=== PATIENT | female | born 1950 | race Caucasian/White ===

== ENCOUNTER 2019-06-23 09:43 | Outpatient (CLI) | payer OTHER, SELFPAY ==
--- NOTE | ~2019-06-23 | DEXA_ITS ---
Bone Density Report Name: Cinthya Michael Age: 69 Sex: Female Ethnicity: White Date of : 1950 Indication: osteopenia; height loss; Referring Provider: IMTIAZ MAYNARD Study: Bone densitometry was performed. Exam Date: June 23, 2019 Accession number: [id number] Bone Density: Region BMD T-score Z-score Classification AP Spine (L1, L2, L3) 0.853 -1.5 0.4 Osteopenia Femoral Neck (Left) 0.732 -1.0 0.6 Normal Total Hip (Left) 0.874 -0.6 0.8 Normal Total Hip Bilateral Avg 0.868 -0.7 0.8 Normal Femoral Neck (Right) 0.736 -1.0 0.6 Normal Total Hip (Right) 0.861 -0.7 0.7 Normal World Health Organization criteria for BMD impression classify patients as: Normal (T-score at or above -1.0), Osteopenia (T-score between -1.0 and -2.5), or Osteoporosis (T-score at or below -2.5). 10-year Fracture Risk(1): Major Osteoporotic Fracture 8.1% Hip Fracture 0.6% Reported Risk Factors: [place] (), Neck BMD=0.736, BMI=31.6 (1) FRAX(R) Version 3.08. Fracture probability calculated for an untreated patient. Fracture probability may be lower if the patient has received treatment. Previous Exams: Region Exam Age BMD T-score BMD Change BMD Change Date g/cm2 vs Baseline vs Previous AP Spine(L1, L2, L3) 06/23/2019 69 0.853 -1.5 -0.316(-27.0%) -0.023(-2.7%)* 06/22/2017 67 0.877 -1.3 -0.292(-25.0%) -0.161(-15.5%) 03/04/2009 58 1.037 0.2 -0.131(-11.2%) -0.131(-11.2%) 10/31/2004 54 1.169 1.4 Total Hip(Left) 06/23/2019 69 0.874 -0.6 -0.085(-8.9%)# 0.037(4.5%)* 06/22/2017 67 0.837 -0.9 -0.123(-12.8%) -0.049(-5.5%)# 03/04/2009 58 0.885 -0.5 -0.074(-7.7%)* -0.074(-7.7%)* 10/31/2004 54 0.959 0.1 Total Hip(Right) 06/23/2019 69 0.861 -0.7 -0.100(-10.4%) -0.025(-2.8%) 06/22/2017 67 0.886 -0.5 -0.075(-7.8%)# -0.003(-0.4%)# 03/04/2009 58 0.889 -0.4 -0.072(-7.5%)* -0.072(-7.5%)* 10/31/2004 54 0.961 0.2 *Denotes significance at 95% confidence level, LSC for AP Spine = 0.022 g/cm2, LSC for Total Hip = 0.027 g/cm2 Clinical Information Provided by Patient: Has used the following medications: Calcium Patient maximum height was 63 Menopause Age: 57 No regular weight bearing exercise Does not regularly consume dairy products Onset of menses at age 16 Number of children 2 Impression: The patient has low bone mass, based on the Total Spine T-score. The patient has an estimated ten-
== END 2019-06-23 09:44 | disposition home or self-care (01) ==
PROVIDERS: PCP Family Medicine; Visit Provider Family Medicine
DX: K21.9 Gastro-esophageal reflux disease without esophagitis (principal); Z78.0 Asymptomatic menopausal state; M85.88 Other specified disorders of bone density and structure, other site
CPT/HCPCS: 77080

== ENCOUNTER 2020-07-08 16:38 | Outpatient (CLI) | payer OTHER, SELFPAY | END 2020-07-08 16:39 | disposition home or self-care (01) | LOC: ANHCOVIDVC 16:38 | PROVIDERS: PCP Family Medicine | DX: Z23 Encounter for immunization (principal) | CPT/HCPCS: 0001A; 91300 ==

== ENCOUNTER 2020-07-29 16:43 | Outpatient (CLI) | payer OTHER, SELFPAY | END 2020-07-29 16:44 | disposition home or self-care (01) | LOC: ANHCOVIDVC 16:43 | PROVIDERS: PCP Family Medicine | DX: Z23 Encounter for immunization (principal) | CPT/HCPCS: 0002A; 91300 ==

== ENCOUNTER 2020-10-27 17:03 | Outpatient (CLI) | payer OTHER, SELFPAY ==
--- NOTE | ~2020-10-27 | MM_ITS ---
EXAMINATION: MM screening [facility] BI w farooq HISTORY: Screening mammogram TECHNIQUE: Craniocaudal and mediolateral oblique 3-D tomosynthesis images were obtained and synthetic 2-D images were generated. CAD analysis was submitted and interpreted. COMPARISON: 05/28/2019, 06/22/2017, 05/01/2016 bilateral digital screening mammogram examinations BREAST PARENCHYMAL COMPOSITION: The breasts are almost entirely fatty. FINDINGS: There is no evidence of suspicious mass, calcification, or architectural distortion to sugg est malignancy in either breast. There has been no suspicious interval change. IMPRESSION: 1. No mammographic evidence of malignancy. 2. Recommend routine screening mammography in one year. BI-RADS Category 1: Negative Reviewed, dictated and finalized at location A.
== END 2020-10-27 17:04 | disposition home or self-care (01) ==
LOC: ANHIMG 17:05
PROVIDERS: PCP Family Medicine; Visit Provider Family Medicine
DX: Z12.31 Encounter for screening mammogram for malignant neoplasm of breast (principal)
CPT/HCPCS: 77063; 77067

== ENCOUNTER → 2021-12-29 11:14 | Outpatient (CLI) | payer OTHER, SELFPAY ==
--- NOTE | ~2021-12-29 | MM_ITS ---
EXAMINATION: MM screening [facility] BI w farooq HISTORY: Screening TECHNIQUE: Craniocaudal and mediolateral oblique 3-D tomosynthesis images were obtained and synthetic 2-D images were generated. CAD analysis was submitted and interpreted. COMPARISON: Comparison to multiple prior studies sequentially, with oldest reviewed study dated 04/05. BREAST PARENCHYMAL COMPOSITION: There are scattered areas of fibroglandular density. FINDINGS: There is no evidence of suspicious mass, calcification, or architectural distortion to sugg est malignancy in either breast. There has been no suspicious interval change. IMPRESSION: 1. No mammographic evidence of malignancy. 2. Recommend routine screening mammography in one year. BI-RADS Category 1: Negative Reviewed, dictated and finalized at location A.
== END ==
PROVIDERS: PCP Family Medicine; Visit Provider Family Medicine
DX: Z12.31 Encounter for screening mammogram for malignant neoplasm of breast (principal)
CPT/HCPCS: 77063; 77067

== ENCOUNTER → 2022-01-13 08:50 | Outpatient (CLI) | payer OTHER, SELFPAY ==
--- NOTE | ~2022-01-13 | US_ITS ---
EXAMINATION: US aorta DATE: 01/13/2022 09:20 INDICATION: Hypercholesterolemia. Family history of abdominal aortic aneurysm. TECHNIQUE: Grayscale, color Doppler, and pulsed Doppler images of the aorta and common iliac arteries were obtained. COMPARISON: None. FINDINGS: The aorta measures 2.4 cm in maximum transverse diameter. No aneurysm. The right common iliac artery was not visualized due to bowel gas. The left common iliac artery was not visualized due to bowel gas . IMPRESSION: 1. No abdominal aortic aneurysm. 2. Iliac vessels were obscured. Reviewed, dictated and finalized at location K.
== END ==
PROVIDERS: PCP Family Medicine; Visit Provider Family Medicine
DX: R09.89 Other specified symptoms and signs involving the circulatory and respiratory systems (principal)
CPT/HCPCS: 76775

== ENCOUNTER 2022-04-06 15:21 | Outpatient (CLI) | payer OTHER, SELFPAY ==
--- NOTE | 2022-04-11 12:50 | WPDHOLTEREM ---
Holter/Event Monitor Holter/Event Monitor Date of procedure: 04/06/22 Holter/Event Procedure: 48 Hr Holter Monitor Indications: Flutter Conclusion: 1. 48 hour holter monitor on 04/06/22. 2. Underlying rhythm is sinus rhythm. HR range 37-129 bpm; average HR 82 bpm. 3. No premature supraventricular complexes. No supraventricular tachycardia. 4. There is 1 premature ventricular complex. No ventricular tachycardia. 5. There is a second degree AV block, type I at 37 bpm at 11:51. No significant pauses greater than 2 seconds. 6. Patient reports symptoms of chest pain and shortness of breath which demonstrate sinus rhythm, HR range 69-80 bpm.
== END 2022-04-06 15:22 | disposition home or self-care (01) ==
LOC: ANHCARD 15:22
PROVIDERS: PCP Family Medicine; Visit Provider Family Medicine
DX: I49.8 Other specified cardiac arrhythmias (principal); I44.1 Atrioventricular block, second degree; R06.02 Shortness of breath; R07.9 Chest pain, unspecified
CPT/HCPCS: 93225; 93226

== ENCOUNTER 2022-04-12 16:31 | Outpatient (CLI) | payer OTHER, SELFPAY ==
--- NOTE | ~2022-04-12 | US_ITS ---
US abdomen limited INDICATION: Right upper quadrant pain PROCEDURE: Realtime right upper abdominal ultrasound. COMPARISON: No prior studies for comparison. FINDINGS: The pancreas is normal without focal mass or pancreatic ductal dilation. There is a hypere choic 1.1 cm mass of the liver in a subcapsular location. There is normal directional flow in the po rtal vein. The gallbladder is normal without stones, gallbladder wall thickening or pericholecystic fluid. Comm on bile duct measures 3 mm. No sonographic Encarnacion's sign. IMPRESSION: 1: Hyperechoic 11 mm liver nodule, most likely benign hemangioma in the absence of known malignancy. Clinically correlate. Reviewed, dictated and finalized at location A. 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
== END 2022-04-12 16:32 | disposition home or self-care (01) ==
LOC: ANHIMG 16:33
PROVIDERS: PCP Family Medicine; Visit Provider Family Medicine
DX: I49.8 Other specified cardiac arrhythmias (principal); R10.11 Right upper quadrant pain; K76.89 Other specified diseases of liver
CPT/HCPCS: 76705

== ENCOUNTER 2023-02-28 09:55 | Outpatient (CLI) | payer MEDICARE, SELFPAY ==
--- NOTE | ~2023-02-28 | MM_ITS ---
EXAMINATION: MM screening [facility] BI w farooq HISTORY: Screening mammogram TECHNIQUE: Craniocaudal and mediolateral oblique 3-D tomosynthesis images were obtained and synthetic 2-D images were generated. CAD analysis was submitted and interpreted. COMPARISON: 12/29/2021, 10/23/2020, 05/28/2019 bilateral screening mammogram BREAST PARENCHYMAL COMPOSITION: There are scattered areas of fibroglandular density. FINDINGS: There is no evidence of suspicious mass, calcification, or architectural distortion to sugg est malignancy in either breast. There has been no suspicious interval change. IMPRESSION: 1. No mammographic evidence of malignancy. 2. Recommend routine screening mammography in one year. BI-RADS Category 1: Negative Reviewed, dictated and finalized at location A.
== END 2023-02-28 09:56 | disposition home or self-care (01) ==
PROVIDERS: PCP Family Medicine; Visit Provider Physician Assistant
DX: Z12.31 Encounter for screening mammogram for malignant neoplasm of breast (principal)
CPT/HCPCS: 77063; 77067

== ENCOUNTER 2023-04-01 07:00 | Outpatient (NON) | payer MEDICARE, SELFPAY | END 2023-04-01 07:01 | disposition home or self-care (01) | PROVIDERS: PCP Family Medicine; Visit Provider Internal Medicine Gastroenterology | DX: Z12.11 Encounter for screening for malignant neoplasm of colon (principal); D12.5 Benign neoplasm of sigmoid colon | CPT/HCPCS: 88305 ==

== ENCOUNTER 2023-04-01 07:37 | Day surgery (SDC) | payer MEDICARE, SELFPAY ==
[2023-02-22 12:47] VITALS: BMI 32.1
[2023-03-12 08:38] VITALS: BMI 25.6
--- NOTE | 2023-03-27 13:00 | PM.HPGS ---
History of Present Illness History of Present Illness Consent: Risks, benefits, and alternatives have been discussed and questions answered. Patient agrees to proceed with procedure. Chief complaint: Z12.11 Screening for neoplasm of colon Narrative: Cinthya Michael is a 72 year old female Referred for colon cancer screening. Her last colonoscopy was 10 years ago. Review of Systems Review of Systems: All systems reviewed & are unremarkable except as noted in HPI and below PMFSH Past Medical History Medical History Degeneration of lumbar or lumbosacral intervertebral disc FH: irritable bowel syndrome Gastro-esophageal reflux disease without esophagitis Lumbar radiculopathy, right Menopausal and female climacteric states Primary osteoarthritis of right foot Family History Family History Mother Hypertension Diabetes mellitus Family history of elevated blood lipids Family history of aortic aneurysm Family history of malignant neoplasm of cervix Sibling Family history of congenital heart disease Family history of malignant neoplasm of cervix Father Family history of aortic aneurysm Other Family history of arthritis Family history of cardiovascular disease Family history of malignant neoplasm Social History Social History Smoking status: Never smoker Alcohol intake: never Substance use type: does not use Lack of Transportation: No Lack of Food: Never True Current Housing: I Have Housing Concerned About Future Housing: No Difficulty Paying Gas/Electric Bills: No Difficulty Paying for Meds: No Currently Unemployed: No Education: High School Diploma/GED Difficulty w/ Childcare or Family Care: No Living arrangements: alone Additional living arrangements comments: alone Spiritual care concerns: No Meds Home Medications and Allergies Home Medications Medication Instructions Recorded Confirmed Type atorvastatin 10 mg tablet 10 mg PO QHS #90 tabs 03/07/23 03/12/23 Rx Adults Multivitamin 1 tablet PO DAILY 03/12/23 03/12/23 History All Day Calcium 600 mg PO DAILY 03/12/23 03/12/23 History Becotin W/Vitamin C 250,000 mg PO DAILY 03/12/23 03/12/23 History Cinnamon 100 mcg PO DAILY 03/12/23 03/12/23 History Hair, Skin and Nails (biotin) 1 tablet PO DAILY 03/12/23 03/12/23 History Neuriva Plus 1 tablet PO DAILY 03/12/23 03/12/23 History Osteo Bi-Flex 1 tablet PO DAILY 03/12/23 03/12/23 History Vitamin B-12 5,000 mcg PO DAILY 03/12/23 03/12/23 History biotin 1 tablet PO DAILY 03/12/23 03/12/23 History cholecalciferol (vitamin D3) 2 tablet PO DAILY 03/12/23 03/12/23 History Allergies Allergy/AdvReac Type Severity Reaction Status Date / Time No Known Allergies Allergy Unknown Verified 04/01/23 09:19 Exam Const: General: alert Orientation/consciousness: patient oriented x3 Resp: Auscultation: clear to auscultation bilaterally Cardio: Rhythm: regular rhythm GI: GI Palp: Yes Soft to palpation and No Tenderness to palpation present (GI) Neuro: General: patient oriented x3 Assessment and Plan Assessment and plan (1) Colon cancer screening: Code(s): Z12.11 - Encounter for screening for malignant neoplasm of colon Status: Acute Assessment and Plan: Colonoscopy with possible biopsy or polypectomy or cautery or injection of substances.
[2023-04-01 09:23] VITALS: BP 101/65; PULSE 73; RESP 16; TEMP 37.2; O2SAT 100
[2023-04-01] MEDS: LACTATED RINGERS 1,000 ML 150 ML IV CONT (09:31)
--- NOTE | 2023-04-01 09:34 | WPDANESEPPF ---
Anes - Initial Pre Proc Eval Procedure: Operation Date: 04/01/23 10:30 Proposed Procedures p Screening Colonoscopy - Brandon Martinez MD Date/Time: 04/01/23 09:34 Surgeon: Brandon Martinez MD Pre Op Diagnosis: Z12.11 Screening for neoplasm of colon Patient Data Age: 72 Gender: F Height: 1.57 m Weight: 63.7 kg Last Vital Signs Temp 37.2 C 04/01/23 09:23 Pulse 73 04/01/23 09:23 Resp 16 04/01/23 09:23 BP 101/65 04/01/23 09:23 Pulse Ox 100 04/01/23 09:23 O2 Del Method Room Air 04/01/23 09:23 Allergies Allergy/AdvReac Type Severity Reaction Status Date / Time No Known Allergies Allergy Unknown Verified 04/01/23 09:19 Home Medications Medication Instructions Recorded Confirmed Type atorvastatin 10 mg tablet 10 mg PO QHS #90 tabs 03/07/23 03/12/23 Rx Adults Multivitamin 1 tablet PO DAILY 03/12/23 03/12/23 History All Day Calcium 600 mg PO DAILY 03/12/23 03/12/23 History Becotin W/Vitamin C 250,000 mg PO DAILY 03/12/23 03/12/23 History Cinnamon 100 mcg PO DAILY 03/12/23 03/12/23 History Hair, Skin and Nails (biotin) 1 tablet PO DAILY 03/12/23 03/12/23 History Neuriva Plus 1 tablet PO DAILY 03/12/23 03/12/23 History Osteo Bi-Flex 1 tablet PO DAILY 03/12/23 03/12/23 History Vitamin B-12 5,000 mcg PO DAILY 03/12/23 03/12/23 History biotin 1 tablet PO DAILY 03/12/23 03/12/23 History cholecalciferol (vitamin D3) 2 tablet PO DAILY 03/12/23 03/12/23 History Patient hx anesthesia problems: none Family hx anesthesia problems: none Results Review: All pre-operative results and documents have been reviewed as part of the pre-operative evaluation. [facility] Past Medical History Medical History Degeneration of lumbar or lumbosacral intervertebral disc FH: irritable bowel syndrome Gastro-esophageal reflux disease without esophagitis Lumbar radiculopathy, right Menopausal and female climacteric states Primary osteoarthritis of right foot Family History Family History Mother Hypertension Diabetes mellitus Family history of elevated blood lipids Family history of aortic aneurysm Family history of malignant neoplasm of cervix Sibling Family history of congenital heart disease Family history of malignant neoplasm of cervix Father Family history of aortic aneurysm Other Family history of arthritis Family history of cardiovascular disease Family history of malignant neoplasm Social History Social History Smoking status: Never smoker Alcohol intake: never Substance use type: does not use Lack of Transportation: No Lack of Food: Never True Current Housing: I Have Housing Concerned About Future Housing: No Difficulty Paying Gas/Electric Bills: No Difficulty Paying for Meds: No Currently Unemployed: No Education: High School Diploma/GED Difficulty w/ Childcare or Family Care: No Living arrangements: alone Additional living arrangements comments: alone Spiritual care concerns: No Anes - Eval Final PreProcedure Day of Procedure 04/01/23 09:34 Patient weight: normal Heart: regular rate and rhythm Lungs: clear to auscultation Airway: Mallampati scale Neurological: alert and oriented Last oral intake: >/= 8 hours ASA classification: II Emergent: no Anesthetic plan: proceed Anesthesia type and monitoring: general GIVS and standard monitoring Results Review: All pre-operative results and documents have been reviewed as part of the pre-operative evaluation. Informed Consent: The patient's anesthetic plan and its attendant risks and benefits were discussed with the patient/family/POA. Questions were solicited and answers provided to the satisfaction of the patient/family/POA.
[2023-04-01 10:45] VITALS: BP 83/56; PULSE 73; RESP 16; O2SAT 96
[2023-04-01 10:55] VITALS: BP 81/54; PULSE 68; RESP 16; O2SAT 98
[2023-04-01 11:05] VITALS: BP 90/55; PULSE 68; RESP 18; O2SAT 98
--- NOTE | 2023-04-01 12:23 | WPDANESPN ---
Anes - Prog Note Post-Op Date/Time: 04/01/23 12:23 Cardiovascular status: normal Respiratory status: normal Airway patency: baseline Mental status: baseline Post-Op hydration status: normal Vital Signs: Last Vital Signs Temp 37.2 C 04/01/23 09:23 Pulse 68 04/01/23 11:05 Resp 18 04/01/23 11:05 BP 90/55 L 04/01/23 11:05 Pulse Ox 98 04/01/23 11:05 O2 Del Method Room Air 04/01/23 11:05 Pain Score (VAS): 0 I/O: Intake & Output 03/31/23 04/01/23 04/01/23 23:59 07:59 15:59 Intake Total 500 Balance 500 Patient Feedback: Patient satisfied with anesthetic care.
== END 2023-04-01 11:29 | disposition home or self-care (01) ==
PROVIDERS: PCP Family Medicine; Visit Provider Internal Medicine Gastroenterology
PROC: 0DJD8ZZ Inspection of Lower Intestinal Tract, Via Natural or Artificial Opening Endoscopic (ICD-10-PCS; CPT 45378; principal; 2023-04-01 10:30)
DX: Z12.11 Encounter for screening for malignant neoplasm of colon (principal); D12.5 Benign neoplasm of sigmoid colon
CPT/HCPCS: 45380

== ENCOUNTER 2024-03-05 17:31 | Emergency (ER) | payer MEDICARE, SELFPAY ==
--- NOTE | ~2024-03-05 | XR_ITS ---
XR chest 2V Ordering provider: Kristopher Elliott MD History: 73 years Female with . CHEST PAIN . Comparison: 03/05/2024 FINDINGS: MEDIASTINUM: The cardiac silhouette is not enlarged. LUNGS: No infiltrates, effusions or pneumothorax. OTHER: No free air under the diaphragm. Degenerative changes of the spine. Kyphosis. IMPRESSION: No acute cardiopulmonary pathology. Reviewed, dictated and finalized at location A.
--- NOTE | ~2024-03-05 | CT_ITS ---
CT cervical spine wo con Ordering provider: Neyda Davis History: . left arm pain, paresthesias . Comparison: None. Technique: CT of the cervical spine was performed without contrast. Sagittal and coronal reformatted images were also obtained and reviewed. Automated exposure control and iterative reconstruction izzy hnique were employed. The dose-length product was 205.57 mGy-cm. FINDINGS: VERTEBRAE: No subluxation or acute fracture. The occipital condyles are intact. DISC SPACES: Narrowing of the disc C3-C4, C4-C5, C5-C6 and C6-C7. Multilevel facet joint disease. Mul tilevel uncovertebral joint osteoarthritic changes. Mild narrowing of the foramina at the level of C3-C4 bilateral narrowing of the foramina at the level of the fourth of C5, C5-C6 and C6-C7. Spinal canal stenosis is seen at the level of C5-C6. PARASPINOUS SOFT TISSUES: Normal. IMPRESSION: No acute osseous abnormality cervical spine. Multilevel degenerative disc disease with variable degrees of spinal canal stenosis, intervertebral f oraminal narrowing, facet joint disease and uncovertebral joint osteoarthritic changes. Reviewed, dictated and finalized at location A. IMPRESSION: No acute osseous abnormality cervical spine. Multilevel degenerative disc disease with variable degrees of spinal canal sten osis, intervertebral foraminal narrowing, facet joint disease and uncovertebral joint osteoarthritic changes.
[2024-03-05 17:33] VITALS: BP 124/79; PULSE 87; RESP 20; TEMP 36.3; O2SAT 98
--- NOTE | 2024-03-05 17:33 | ECG_ITS ---
Test Date: 2024-03-05 17:39:58 Measurements Intervals [place] Rate: 78 P: 209 MI: 107 QRS: 185 QRSD: 95 T: 173 QT: 351 QTc: 402 Interpretive Statements SINUS RHYTHM WITH SHORT MI INTERVAL LIMB LEAD REVERSAL DELAYED PRECORDIAL R/S TRANSITION BASELINE ARTIFACT- I, II, AVR, AVL BORDERLINE ECG No previous ECG available for comparison Electronically Signed On 03-06-2024 06:44:41 CDT by Spike Hernandez D.O.
[2024-03-05 17:52] LABS: Basophils Percent Auto 0.6 % (0.2-1.2); Eosinophils Absolute Auto 0.2 K/mm3 (0-0.3); Immature Granulocyte Absolute 0.02 K/mm3 (0.00-0.031); Immature Granulocyte Percent A 0.3 % (0-0.5); Lymphocytes Absolute Auto 1.93 K/mm3 (0.9-3.2); Lymphocytes Percent Auto 28.6 % (18.3-44.2); Mean Corpuscular HGB Conc 33.3 g/dl (32-36); Mean Corpuscular Hemoglobin 28.8 pg (26-34); Mean Corpuscular Volume 86.3 fl (80-100); Mean Platelet Volume 10.2 fl (7.4-10.4); Monocytes Absolute Auto 0.6 K/mm3 (0.1-0.6); Monocytes Percent Auto 8.8 % (2.6-8.5); Neutrophils Percent Auto 58.7 % (45.5-73.1); Platelet Count Result 269 k/mm3 (150-375); Red Blood Count 4.52 M/mm3 (4.2-5.4); Red Cell Distribution Width 12.8 % (11.5-14.5); White Blood Count 6.7 K/mm3 (4.5-10.0)
[2024-03-05 18:02] LABS: Alanine Aminotransferase 22 U/L (6-35); Albumin Level 4.4 g/dL (3.5-5.1); Alkaline Phosphatase 109 U/L (38-126); Anion Gap 8 mmol/L (4-12); Aspartate Amino Transferase 34 U/L (14-36); Bilirubin,Total 0.9 mg/dL (0.2-1.3); Blood Urea Nitrogen 24 mg/dL (7-17); Calcium 9.6 mg/dL (8.4-10.2); Carbon Dioxide 27 mmol/L (22-30); Chloride 106 mmol/L (98-107); Estimated CRCL calculation 51 ml/min; Estimated Glomerular Filt Rate > 60; Glucose 104 mg/dL (65-110); Lipase 129 U/L (23-300); Partial Thromboplastin Time 26.2 Seconds (22.3-36.8); Potassium 3.6 mmol/L (3.4-5.0); Prothrombin Time 13.9 Seconds (11.1-14.7); Sodium 141 mmol/L (137-145)
[2024-03-05 18:13] LABS: Troponin I < 0.012 ng/mL (0.000-0.034)
--- NOTE | 2024-03-05 18:18 | ED_ITS ---
HPI - Chest Pain General Chief Complaint: Chest Pain Stated Complaint: CP L ARM TINGLING X2D Time Seen by Provider: 03/05/24 18:18 Focused HPI: This is a 73 year old female that presents to the ER for chest pain. She has been doing yard work the last several days. She has had pain and tingling in her left arm and then started to have pain in the left side of her chest and back. Reports some neck pain. Denies shortness of breath currently. Reports some exertional shortness of breath occasionally. GENERAL: Well-appearing, well-nourished, and in no acute distress. HEAD: Normocephalic, atraumatic. CHEST: Clear to auscultation. ?No respiratory distress. HEART: Regular rate and rhythm.? NEURO: ?Alert and oriented x3. Patient screened in triage and initial orders placed.? ?Additional care and disposition to be based upon?diagnostic testing and treatment. Related Data Home Medications Medication Instructions Recorded Confirmed Adults Multivitamin 1 tablet PO DAILY 03/12/23 12/31/23 All Day Calcium 600 mg PO DAILY 03/12/23 12/31/23 Becotin W/Vitamin C 250,000 mg PO DAILY 03/12/23 12/31/23 Cinnamon 100 mcg PO DAILY 03/12/23 12/31/23 Hair, Skin and Nails (biotin) 1 tablet PO DAILY 03/12/23 12/31/23 Neuriva Plus 1 tablet PO DAILY 03/12/23 12/31/23 Osteo Bi-Flex 1 tablet PO DAILY 03/12/23 12/31/23 Vitamin B-12 5,000 mcg PO DAILY 03/12/23 12/31/23 biotin 1 tablet PO DAILY 03/12/23 12/31/23 cholecalciferol (vitamin D3) 2 tablet PO DAILY 03/12/23 12/31/23 Allergies Allergy/AdvReac Type Severity Reaction Status Date / Time No Known Allergies Allergy Unknown Verified 12/31/23 10:46 [facility] Past Medical History Medical History (Updated 03/06/24 @ 13:56 by Neyda Davis PA-C) Breast cancer screening Chest pain Colon cancer screening Degeneration of lumbar or lumbosacral intervertebral disc Essential hypertension FH: irritable bowel syndrome Gastro-esophageal reflux disease without esophagitis Lumbar radiculopathy, right Menopausal and female climacteric states Obesity Palpitations Postprandial abdominal pain in right upper quadrant Primary osteoarthritis of right foot Surgical History Surgical History (Updated 12/31/23 @ 12:30 by Kieran Arvizu APRN) Status post lumbar spinal fusion Family History Family History Mother Hypertension Diabetes mellitus Family history of elevated blood lipids Family history of aortic aneurysm Family history of malignant neoplasm of cervix Sibling Family history of congenital heart disease Family history of malignant neoplasm of cervix Father Family history of aortic aneurysm Other Family history of arthritis Family history of cardiovascular disease Family history of malignant neoplasm Social History Social History Smoking status: Never smoker Alcohol intake: never Substance use type: does not use Do You Feel Safe in your Home?: Yes Lack of Transportation: No Lack of Food: Never True Current Housing: I Have Housing Concerned About Future Housing: No Difficulty Paying Gas/Electric Bills: No Difficulty Paying for Meds: No Currently Unemployed: No Education: High School Diploma/GED Difficulty w/ Childcare or Family Care: No Living arrangements: alone Additional living arrangements comments: alone Spiritual care concerns: No Course Vital Signs Vital signs: Vital Signs Temperature 97.4 F L 03/05/24 17:33 Pulse Rate 87 03/05/24 17:33 Respiratory Rate 20 03/05/24 17:33 Blood Pressure 124/79 03/05/24 17:33 Pulse Oximetry 98 03/05/24 17:33 Oxygen Delivery Room Air 03/05/24 17:33 Temperature 97.4 F L 03/05/24 17:33 Pulse Rate 87 03/05/24 17:33 Respiratory Rate 20 03/05/24 17:33 Blood Pressure 124/79 03/05/24 17:33 Pulse Oximetry 98 03/05/24 17:33 Oxygen Delivery Room Air 03/05/24 17:33 MDM - Chest Pain MDM Narrative Medical decision making narrative: Patient left after medical screening exam and initial workup and before any further evaluation or management Lab Data 03/05/24 17:44 03/05/24 17:44 Labs: Lab Results 03/05/24 Range/Units 17:44 WBC 6.7 (4.5-10.0) K/mm3 RBC 4.52 (4.2-5.4) M/mm3 Hgb 13.0 (12.0-15.0) g/dL Hct 39.0 (37.0-47.0) % MCV 86.3 (80-100) fl MCH 28.8 (26-34) pg MCHC 33.3 (32-36) g/dl RDW 12.8 (11.5-14.5) % Plt Count 269 (150-375) k/mm3 MPV 10.2 (7.4-10.4) fl Immature Gran % (Auto) 0.3 (0-0.5) % Neut % (Auto) 58.7 (45.5-73.1) % Lymph % (Auto) 28.6 (18.3-44.2) % [place] % (Auto) 8.8 H (2.6-8.5) % Eos % (Auto) 3.0 (0-4.4) % Baso % (Auto) 0.6 (0.2-1.2) % Lymph # (Auto) 1.93 (0.9-3.2) K/mm3 [place] # (Auto) 0.6 (0.1-0.6) K/mm3 Eos # (Auto) 0.2 (0-0.3) K/mm3 Baso # (Auto) 0.0 (0.0-0.1) K/mm3 Abs Immat Gran (auto) 0.02 (0.00-0.031) K/mm3 Absolute Neuts (auto) 4.0 (1.3-6.7) K/mm3 Absolute Nucleated RBC 0.000 (0.0-0.012) K/mm3 Nucleated RBC % 0.0 (0.0-0.2) % PT 13.9 (11.1-14.7) Seconds INR 1.0 APTT 26.2 (22.3-36.8) Seconds Sodium 141 (137-145) mmol/L Potassium 3.6 (3.4-5.0) mmol/L Chloride 106 (98-107) mmol/L Carbon Dioxide 27 (22-30) mmol/L Anion Gap 8 (4-12) mmol/L BUN 24 H (7-17) mg/dL Creatinine 0.80 (0.7-1.0) mg/dL Estim Creat Clear Calc 51 ml/min Estimated GFR > 60 (59 - ) Glucose 104 (65-110) mg/dL Calcium 9.6 (8.4-10.2) mg/dL Total Bilirubin 0.9 (0.2-1.3) mg/dL AST 34 (14-36) U/L ALT 22 (6-35) U/L Alkaline Phosphatase 109 (38-126) U/L Troponin I < 0.012 (0.000-0.034) ng/mL Total Protein 8.0 (6.3-8.2) g/dL Albumin 4.4 (3.5-5.1) g/dL Lipase 129 (23-300) U/L Imaging Data Radiologist's impression: ITS Impressions Chest X-Ray 03/05/24 18:06 IMPRESSION: No acute cardiopulmonary pathology. Cervical Spine CT 03/05/24 20:17 IMPRESSION: No acute osseous abnormality cervical spine. Multilevel degenerative disc disease with variable degrees of spinal canal stenosis, intervertebral foraminal narrowing, facet joint disease and uncovertebral joint osteoarthritic changes. Discharge Plan Discharge Clinical Impression: Chest pain Patient Disposition: Elopement After Seen by Prov Condition: Stable Prescriptions: No Action atorvastatin 10 mg tablet 10 mg PO QHS Qty: 90 1RF Adults Multivitamin 1 tablet PO DAILY All Day Calcium 600 mg PO DAILY Becotin W/Vitamin C 250,000 mg PO DAILY Cinnamon 100 mcg PO DAILY Hair, Skin and Nails (biotin) 1 tablet PO DAILY Neuriva Plus 1 tablet PO DAILY Osteo Bi-Flex 1 tablet PO DAILY Vitamin B-12 5,000 mcg PO DAILY biotin 1 tablet PO DAILY cholecalciferol (vitamin D3) 2 tablet PO DAILY Follow-up/Referrals: Julia Ricardo MD [Primary Care Provider] -
== END 2024-03-05 22:27 | disposition left against medical advice (07) ==
PROVIDERS: Emergency Medicine; Emergency Provider Physician Assistant; PCP Family Medicine
DX: R07.9 Chest pain, unspecified (principal); I10 Essential (primary) hypertension; K21.9 Gastro-esophageal reflux disease without esophagitis
CPT/HCPCS: 36415; 71046; 72125; 80053; 83690; 84484; 85025; 85610; 85730; 93005; 99284

== ENCOUNTER 2024-04-13 14:36 | Outpatient (CLI) | payer MEDICARE, SELFPAY ==
--- NOTE | ~2024-04-13 | MM_ITS ---
EXAMINATION: MM screening [facility] BI w farooq HISTORY: Screening TECHNIQUE: Craniocaudal and mediolateral oblique 3-D tomosynthesis images were obtained and synthetic 2-D images were generated. CAD analysis was submitted and interpreted. COMPARISON: Comparison to multiple prior studies sequentially, with oldest reviewed study dated 04/06. BREAST PARENCHYMAL COMPOSITION: Not Dense. The breasts are almost entirely fatty. FINDINGS: There is no evidence of suspicious mass, calcification, or architectural distortion to sugg est malignancy in either breast. There has been no suspicious interval change. IMPRESSION: 1. No mammographic evidence of malignancy. 2. Recommend routine screening mammography in one year. BI-RADS Category 1: Negative Reviewed, dictated and finalized at location B. 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
== END 2024-04-13 14:37 | disposition home or self-care (01) ==
LOC: ANHIMG 14:38
PROVIDERS: PCP Family Medicine; Visit Provider Family Medicine
DX: Z12.31 Encounter for screening mammogram for malignant neoplasm of breast (principal)
CPT/HCPCS: 77063; 77067

== ENCOUNTER 2025-02-10 08:18 | Outpatient (CLI) | payer MEDICARE, SELFPAY ==
--- NOTE | ~2025-02-10 | DEXA_ITS ---
Bone Density Report Name: GEOVANNY BRADLEY I Age: 74 Sex: Female Ethnicity: White Date of : 1950 Indication: osteopenia; height loss; Referring Provider: MARINO BOWERS Study: Bone densitometry was performed. Exam Date: February 10, 2025 Accession number: [id number] Bone Density: Region BMD T-score Z-score Classification AP Spine(L1, L2, L3) 0.882 -1.2 1.0 Osteopenia Femoral Neck (Left) 0.695 -1.4 0.6 Osteopenia Total Hip (Left) 0.858 -0.7 1.0 Normal Femoral Neck (Right) 0.729 -1.1 0.9 Osteopenia Total Hip (Right) 0.832 -0.9 0.8 Normal Total Hip Mean 0.845 -0.8 0.9 Normal World Health Organization criteria for BMD impression classify patients as: Normal (T-score at or above -1.0), Osteopenia (T-score between -1.0 and -2.5), or Osteoporosis (T-score at or below -2.5). 10-year Fracture Risk(1): Major Osteoporotic Fracture 11% Hip Fracture 1.7% Reported Risk Factors: [place] (), Neck BMD=0.695, BMI=25.8 (1) FRAX(R) Version 3.08. Fracture probability calculated for an untreated patient. Fracture probability may be lower if the patient has received treatment. Previous Exams: Region Exam Age BMD T-score BMD Change BMD Change Date g/cm2 vs Baseline vs Previous AP Spine (L1-L3) 02/10/2025 74 0.882 -1.2 0.005 (0.6%) 0.028 (3.3%)* 06/23/2019 69 0.853 -1.5 -0.023 (-2.7%) -0.023 (-2.7%) 06/22/2017 67 0.877 -1.3 Total Hip(Left) 02/10/2025 74 0.858 -0.7 0.021 (2.5%) -0.016 (-1.9%) 06/23/2019 69 0.874 -0.6 0.037 (4.5%)* 0.037 (4.5%)* 06/22/2017 67 0.837 -0.9 Total Hip(Right) 02/10/2025 74 0.832 -0.9 -0.054 (-6.0%) -0.029 (-3.3%) 06/23/2019 69 0.861 -0.7 -0.025 (-2.8%) -0.025 (-2.8%) 06/22/2017 67 0.886 -0.5 *Denotes significance at 95% confidence level, LSC for AP Spine = 0.022 g/cm2, LSC for Total Hip = 0.027 g/cm2 Clinical Information Provided by Patient: Has used the following medications: Vitamin D, Calcium Patient maximum height was 63.0 Menopause Age: 57 Drinks caffeinated beverages Onset of menses at age 16 Missed period for more than 6 months in a row Impression: The patient has low bone mass, based on the Left Femoral Neck T-score. The patient has an estimated ten-year risk of hip fracture of 1.7% and an estimated ten-year risk of major fracture of 11%, based on the WHO FRAX algorithm. The BMD for the Total Hip(Right) decreased, changing by -3.3% since the last DXA exam. Discussion: BONE DENSITY IS LOW AT ONE OR MORE SKELETAL SITES. This patient's lowest T-score is low at one or more skeletal sites. It meets the World Health Organization's (WHO) criteria for ?low bone mass? (T-score between -1.0 and -2.5). The patient's 10-year risk of fracture as calculated by FRAX is less than the threshold where pharmacological therapy is recommended by the National Osteoporosis Foundation (NOF). However, all treatment decisions require clinical judgment and consideration of individual patient factors, including patient preferences, comorbidities, previous drug use, risk factors not captured in the FRAX model (e.g., frailty, falls, vitamin D deficiency, increased bone turnover, interval significant decline in bone density) and possible under or overestimation of fracture risk by FRAX. The patient should follow a healthful lifestyle (good nutrition with adequate calcium and vitamin D, and appropriate weight-bearing exercise). Follow-Up: Consider repeating this study in 2 years to reassess this patient's status, or sooner if there is some new clinical indication. Reported by: CARLOTA on 02/10/2025 9:00:00 AM. Reviewed, dictated and finalized at location A.
== END 2025-02-10 08:19 | disposition home or self-care (01) ==
LOC: ANHFOHIMG 08:19
PROVIDERS: PCP Family Medicine; Visit Provider Student in an Organized Health Care Education/Training Program
DX: M85.89 Other specified disorders of bone density and structure, multiple sites (principal); Z78.0 Asymptomatic menopausal state
CPT/HCPCS: 77080

== ENCOUNTER 2025-04-22 15:04 | Outpatient (CLI) | payer MEDICARE, SELFPAY ==
--- NOTE | ~2025-04-22 | MM_ITS ---
EXAMINATION: MM screening sanju BI w farooq HISTORY: Screening TECHNIQUE: Craniocaudal and mediolateral oblique 3-D tomosynthesis images were obtained and synthetic 2-D images were generated. CAD analysis was submitted and interpreted. COMPARISON: Comparison to multiple prior studies sequentially, with oldest reviewed study dated 06/22/2017. BREAST PARENCHYMAL COMPOSITION: Not dense: There are scattered areas of fibroglandular density. FINDINGS: There is no evidence of suspicious mass, calcification, or architectural distortion to suggest malignancy in either breast. There has been no suspicious interval change. IMPRESSION: 1. No mammographic evidence of malignancy. 2. Recommend routine screening mammography in one year. BI-RADS Category 1: Negative Reviewed, dictated and finalized at location [facility]. E [facility]
--- OUTSIDE RECORDS SUMMARY | 2025-04-22 15:57 | XMS_ITS | Encounter Summary ---
Author Organization [facility] Address [address] [place] [address] Care Team Providers Care Architecture Drafter Name Role Phone Unavailable Primary Care Provider Unavailabl e Encounter Details Date Type Department Care Team (Latest Contact Info) Description 07/24/2021 [facility]IC [place] ADM Social History Tobacco Use Types Packs/Day Years Used Date Smoking Tobacco: Never Assessed Comments Unknown Sex and Gender Information Value Date Recorded Sex Assigned at Not on file Legal Sex Female 10:32 AM [facility] Gender Identity Not on file Sexual Orientation Not on file documented as of this encounter Plan of Treatment Not on file documented as of this encounter Visit Diagnoses Not on filedocumented in this encounter
--- OUTSIDE RECORDS SUMMARY | 2025-04-22 15:57 | XMS_ITS | Clinical Summary ---
Author Organization [facility] Address [address] [place] [address] Care Team Providers Care Beverage Distiller Name Role Phone Julia Ricardo MD Primary Care Provider [phone] Source Comments [facility],non-owned Affiliates and Associated Physician Practices is amultiple site organization consisting of ambulatory clinics and hospital sitesin [place], [place], [place] and [place]. This disclosure is being madepursuant to the Care Everywhere program and may not contain all information available regarding this patient. Last updated 18.[facility] Allergies No known active allergies Medications * Be aware that medications may not be up to date on this document. Alwaysverify current medications with the patient. No known medications Social History Tobacco Use Types Packs/Day Years Used Date Smoking Tobacco: Never Smokeless Tobacco: Never Comments No Sex and Gender Information Value Date Recorded Sex Assigned at Not on file Legal Sex Female 5:04 PM CDT Gender Identity Not on file Sexual Orientation Not on file Last Filed Vital Signs Vital Sign Reading Time Taken Comments Blood Pressure 118/78 09/02/2018 5:32 PM CDT Pulse 94 09/02/2018 5:32 PM CDT Temperature 37 C (98.6 F) 09/02/2018 5:32 PM CDT Respiratory Rate 15 09/02/2018 5:32 PM CDT Oxygen Saturation 95% 09/02/2018 5:32 PM CDT Inhaled Oxygen Concentration - - Weight 79.4 kg (175 lb) 09/02/2018 5:32 PM CDT Height 158.8 cm (5' 2.5) 09/02/2018 5:32 PM CDT Body Mass Index 31.5 09/02/2018 5:32 PM CDT Plan of Treatment Health Maintenance Due Date Last Done Comments BONE DENSITY TESTING 1950 COLOGUARD (AGES 45-75) - COL ON CA SCREENING 1950 COLON MONITORING 1950 COLONOSCOPY - COLON CA SCREENING 1950 CT COLONOGRAPHY - COLON CA SCREENING 1950 Colorectal Cancer Screening 1950 FIT - COLON CA SCREENING 1950 FLEX SIG - COLON CA SCREENING 1950 LIPID TESTING 1950 MAMMOGRAM 1950 HEPATITIS C SCREENING 04/19/1970 DTAP/TDAP/TD VACCINES (1 - Tdap) 1971 PNEUMOCOCCAL VACCINE 50+ (1 of 1 - PCV) 2002 ZOSTER VACCINE (1 of 2) 2002 SCREENING FOR DIABETES 09/02/2018 DEPRESSION SCREENING 05/06/2024 MEDICARE AWV CALENDAR YEAR 2024 COVID-19 VACCINE (1 - 2024-2 6 season) 2025 INFLUENZA VACCINE (#1) 2025 Respiratory Syncytial Virus (RSV) Vaccine Pt: or over 60 yrs (1 - 1-dose 75+ series) 2027 HEPATITIS B VACCINE Aged Out No longe r eligible based on patient's age to complete this topic HIB VACCINE Aged Out No longer eligi ble based on patient's age to complete this topic HPV VACCINE Aged Out No longer eligi ble based on patient's age to complete this topic MENINGOCOCCAL (Group B) VACC INE SHARED DECISION-MAKING Aged Out No longer eligibl e based on patient's age to complete this topic MENINGOCOCCAL GROUPS A/C/Y/W VACCINE Aged Out No longer eligible b ased on patient's age to complete this topic Insurance MEDICARE SELF PAY NO INSURANCE Member Subscriber Plan / Payer (Ef fective for All Dates) Name:Varsha Bradley Member ID:Not on file Relation to Subscriber:Not on file Name:GEOVANNY BRADLEY Subscriber ID:Not on file Address: [address] [place] [id number] Payer ID:Not on file Group ID:Not on file Type:Self Pay Address: [place], [place] UHC MANAGED MEDICARE ADV Care Teams Beverage Distiller Relationship Specialty Start Date End Date Julia Ricardo MD [address] [address] PCP - General Family Medicine 09/02/18
--- OUTSIDE RECORDS SUMMARY | 2025-04-22 15:57 | XMS_ITS | Encounter Summary ---
[facility] Organization [facility] Address [address] [place] [address] Care Team Providers Care Regional Transfer Liaison Name Role Phone Unavailable Primary Care Provider Unavailabl e Encounter Details Date Type Department Care Team (Latest Contact Info) Description 04/05/2021 [facility]RIC [place] ADM Social History Tobacco Use Types Packs/Day Years Used Date Smoking Tobacco: Never Assessed Comments Unknown Sex and Gender Information Value Date Recorded Sex Assigned at Not on file Legal Sex Female 10:32 AM [facility] Gender Identity Not on file Sexual Orientation Not on file documented as of this encounter Plan of Treatment Not on file documented as of this encounter Visit Diagnoses Not on filedocumented in this encounter
--- OUTSIDE RECORDS SUMMARY | 2025-04-22 15:57 | XMS_ITS | Encounter Summary ---
Author Organization [facility] Address [address] [place] [address] Care Team Providers Care Shell Grader Name Role Phone Unavailable Primary Care Provider Unavailabl e Encounter Details Date Type Department Care Team (Latest Contact Info) Description 03/27/2021 [facility] [place] ADM Social History Tobacco Use Types Packs/Day Years Used Date Smoking Tobacco: Never Assessed Comments Unknown Sex and Gender Information Value Date Recorded Sex Assigned at Not on file Legal Sex Female 10:32 AM [facility] Gender Identity Not on file Sexual Orientation Not on file documented as of this encounter Plan of Treatment Not on file documented as of this encounter Visit Diagnoses Not on filedocumented in this encounter
--- OUTSIDE RECORDS SUMMARY | 2025-04-22 15:57 | XMS_ITS | Clinical Summary ---
Author Organization [facility] [place] [address] Address [address] [place] [id number] Care Team Providers Care Precision Instrument Maker And Repairer Name Role Phone Julia Ricardo MD Primary Care Provider + Allergies No known active allergies Medications atorvastatin (LIPITOR) 10 mg tablet Take 1 tablet (10 mg total) by mouth nightly at bedtime 06/07/2024 Active glucosamine-cho ndroitin 250-200 mg tablet Take by mouth Active cyanocobalamin (Vitamin B-12) 250 mcg tablet Take 1 tablet (250 mcg total) by mouth daily Active gvfv-ekecnj-snh jchmq-Z4-T-Mn 500-400-667 mg-mg-unit capsule Take by mouth Active biotin 5 mg capsule 1 capsule (1 tablet total) Active cinnamon bark 500 mg capsule Take 1 capsule (500 mg total) by mouth daily Active calcium carbonate-vitam in D3 1500 mg (600 mg elemental) -200 units per tablet Take 1 tablet by mouth daily Active cv-jtm-timwt-ca lcium carb-K1 400 mcg-500 mg calcium-20 mcg tablet Take by mouth Active vit 99-kjdt-sfbwc-d garnica 27mg iron- 800 mcg-250 mg capsule Take by mouth Active aspirin 81 mg enteric coated tablet Take 1 tablet (81 mg total) by mouth daily Active Active Problems Problem Noted Date Diagnosed Date Varicose veins of leg with pain, left 01/15/2025 Assessment & Plan (02/17/2025 2:21 PM CDT): Patient is status post left great saphenous radiofrequency ablation with stab phlebectomies. Stab phlebectomy sites are healed. Venous duplex reveals an ablated great saphenous vein with no acute DVT. -Patient to continue utilizing compression therapy as needed -Patient to follow-up as needed Varicose veins of both lower extremities with pa in 08/09/2024 Assessment & Plan (09/01/2024 10:39 AM CDT): Left lower extremity CEAP C3 disease symptomatic varicosities, risks benefits alternatives to GSV ablation stab phlebectomies discussed, risks including bleeding, infection, DVT/PE, thermal injury, and need further surgery. She wished proceed. Assessment & Plan (08/09/2024 8:15 AM CDT): Bilateral lower extremity CEAP C3 disease symptomatic varicosities despite use of compression therapy. Reports having a vein procedure previously possible stripping. Bilateral extremity reflux steam box hand ordered for further evaluation. Mixed hyperlipidemia 08/09/2024 Assessment & Plan (02/17/2025 2:20 PM CDT): . Chronic and stable. Continue atorvastatin Assessment & Plan (09/01/2024 10:39 AM CDT): Stable continue Lipitor Assessment & Plan (08/09/2024 8:16 AM CDT): Stable Lipitor Encounters Date Type Department Care Team Description 02/17/2025 11:15 AM CDT Office Visit [facility] Vascular at [address] [phone] Agnes Augustine NP Varicose veins of leg with pain, left (Primary Dx); Mixed hyperlipidemia 02/17/2025 11:00 AM CDT Ancillary Procedure [facility] Vascular and Vein Surgery at [address] [phone] Varicose veins of leg with pain, left from Last 3 Months Social History Tobacco Use Types Packs/Day Years Used Date Smoking Tobacco: Unknown Tobacco Cessation:Counseling Given: Not Answered Comments Unknown Sex and Gender Information Value Date Recorded Sex Assigned at Not on file Legal Sex Female 6:16 PM TELECOMMUNICATIONS SWITCH TECHNICIAN Gender Identity Not on file Sexual Orientation Not on file Last Filed Vital Signs Vital Sign Reading Time Taken Comments Blood Pressure 125/80 02/17/2025 10:56 AM CDT Pulse 72 02/17/2025 10:56 AM CDT Temperature - - Respiratory Rate - - Oxygen Saturation 99% 02/17/2025 10:56 AM CDT Inhaled Oxygen Concentration - - Weight 63.5 kg (140 lb) 02/17/2025 10:56 AM CDT Height 157.5 cm (5' 2) 02/17/2025 10:56 AM CDT Body Mass Index 25.61 02/17/2025 10:56 AM CDT Plan of Treatment Health Maintenance Due Date Last Done Comments Breast Cancer Screening-Mammogram 1950 Colon Cancer Screening-Colonoscopy 1950 Depression Screening 1950 Fall Risk Assessment 1950 Hepatitis C Screening 1950 Osteoporosis Screening-Bone Density Scan 1950 Hepatitis B Screening 1970 Well Visit 65+ 2017 Covid-19 Vaccine (4 - 2024-2 6 season) 2025 08/05/2021, 07/29/2020, 07/08/2020 Influenza Vaccine (#1) 2025 , 03/01/2023, 02/16/2020, Additional history exists DTaP/Tdap/Td Vaccine (3 - Td or Tdap) 09/28/2027 09/27/2017, 12/15/2008 Zoster Vaccine Completed 01/20/2022, 08/19/2021 Pneumococcal vaccine 65+ Completed 024, 05/20/2019, 06/21/2017 Procedures Procedure Name Priority Date/Time Associated Diagnosis Comments US VEIN DUPLEX LOWER EXTREMITY LEFT LIMITED Schedule Routine, Read Routine (OP Routine) 02/17/2025 11:08 AM CDT Varicose veins of leg with pain, left from Last 3 Months Results * US VEIN DUPLEX LOWER EXTREMITY LEFT LIMITED, UNILATERAL (02/17/2025 11:08 AM CDT) Anatomical Region Laterality Modality Vascular Left Ultrasound 02/17/2025 10:4 5 AM CDT Narrative 02/19/2025 12:40 PM CDT Vascular & Vein Surgery [address] [place] [address] Lower Extremity Venous Report Patient Name: GEOVANNY BRADLEY I : 1950 (74y 9m) Sex: F Study Date: 02/17/2025 10:45:36 AM Condenser Tester: [place] Location: [facility] Order Provider: VIKAS AHMADI Quality: Adequate Ref Provider: VIKAS AHMADI PROCEDURES: Vascular Report: A non-invasive vascular imaging study of the left lower extremity veins was performed using B-mode ultrasound, color flow, and spectral Doppler. Limited study due to S/P RFA. INDICATIONS: S/P RFA Lt GSV (24 cm) with phlebs 01/15/25. HISTORY: HLD. Hx LLE vein stripping. COMPARISONS: No change compared to prior study. The previous exam was completed on 01/18/25: GSV ablated from prox thigh to knee. FINDINGS: Left: Negative for deep vein thrombosis in the left common femoral vein. Normal compressibility and color filling, spontaneous and phasic flow, and response to distal augmentation is demonstrated in the left common femoral vein and saphenofemoral junction. Great saphenous vein is ablated from proximal thigh to knee. CONCLUSIONS: 1. Negative for deep vein thrombosis in the left common femoral vein. Great saphenous vein is ablated from proximal thigh to knee. ATTESTATION: I have reviewed and interpreted the pertinent images and measurements of this study. I attest to the conclusions in the final report that is provided above. Electronically Signed By: Vikas Ahmadi MD 02/19/2025 12:37:34 PM CDT Procedure Note Vikas Ahmadi MD - 02/19/2025 Vascular & Vein Surgery [address] [place] [id number] Lower Extremity Venous Report Patient Name: GEOVANNY BRADLEY I : 1950 (74y 9m) Sex: F Study Date: 02/17/2025 10:45:36 AM Condenser Tester: Location: [facility] Order Provider: VIKAS AHMADI Quality: Adequate Ref Provider: VIKAS AHMADI PROCEDURES: Vascular Report: A non-invasive vascular imaging study of the left lowerextremity veins was performed using B-mode ultrasound, color flow, and spectral Doppler.Limited study due to S/P RFA. INDICATIONS: S/P RFA Lt GSV (24 cm) with phlebs 01/15/25. HISTORY: HLD. Hx LLE vein stripping. COMPARISONS: No change compared to prior study. The previous exam was completed on01/18/25: GSV ablated from prox thigh to knee. FINDINGS: Left: Negative for deep vein thrombosis in the left common femoral vein.Normal compressibility and color filling, spontaneous and phasic flow, andresponse to distal augmentation is demonstrated in the left common femoral vein andsaphenofemoral junction. Great saphenous vein is ablated from proximal thigh to knee. CONCLUSIONS: 1. Negative for deep vein thrombosis in the left common femoral vein.Great saphenous vein is ablated from proximal thigh to knee. ATTESTATION: I have reviewed and interpreted the pertinent images and measurements ofthis study. I attest to the conclusions in the final report that is provided above. Electronically Signed By: Vikas Ahmadi MD 02/19/2025 12:37:34 PM CDT us Vikas Ahmadi MD [facility] PROCEDURES Final Result from Last 3 Months Insurance [facility] MEDICARE ADVANTAGE Care Teams Precision Instrument Maker And Repairer Relationship Specialty Start Date End Date Julia Ricardo MD [facility] [address] [address] PCP - General Family Medicine 01/15/25
--- OUTSIDE RECORDS SUMMARY | 2025-04-22 15:57 | XMS_ITS | Encounter Summary ---
Author Organization [facility] Address [address] [place] [address] Care Team Providers Care Twist Tester Name Role Phone Unavailable Primary Care Provider Unavailabl e Encounter Details Date Type Department Care Team (Latest Contact Info) Description 05/08/2021 [facility] BIOMETRIC [place] ADM Social History Tobacco Use Types Packs/Day Years Used Date Smoking Tobacco: Never Assessed Comments Unknown Sex and Gender Information Value Date Recorded Sex Assigned at Not on file Legal Sex Female 10:32 AM [facility] Gender Identity Not on file Sexual Orientation Not on file documented as of this encounter Plan of Treatment Not on file documented as of this encounter Visit Diagnoses Not on filedocumented in this encounter
--- OUTSIDE RECORDS SUMMARY | 2025-04-22 15:57 | XMS_ITS | Encounter Summary ---
Author Organization [facility] Address [address] [place] [address] Care Team Providers Care Broadcast Producer Name Role Phone Unavailable Primary Care Provider Unavailabl e Encounter Details Date Type Department Care Team (Latest Contact Info) Description 07/06/2022 [facility] BI[facility]RIC [place] ADM Social History Tobacco Use Types Packs/Day Years Used Date Smoking Tobacco: Never Assessed Comments Unknown Sex and Gender Information Value Date Recorded Sex Assigned at Not on file Legal Sex Female 10:32 AM [facility] Gender Identity Not on file Sexual Orientation Not on file documented as of this encounter Plan of Treatment Not on file documented as of this encounter Visit Diagnoses Not on filedocumented in this encounter
--- OUTSIDE RECORDS SUMMARY | 2025-04-22 15:57 | XMS_ITS | Clinical Summary ---
Author Organization [facility] Address [address] [place] [address] Care Team Providers Care Ornamental Metal Erector Apprentice Name Role Phone Unavailable Primary Care Provider Unavailabl e Social History Tobacco Use Types Packs/Day Years Used Date Smoking Tobacco: Never Assessed Comments Unknown Sex and Gender Information Value Date Recorded Sex Assigned at Not on file Legal Sex Female 10:32 AM [facility] Gender Identity Not on file Sexual Orientation Not on file Plan of Treatment Not on file Insurance [facility]
--- OUTSIDE RECORDS SUMMARY | 2025-04-22 15:57 | XMS_ITS | Encounter Summary ---
Author Organization [facility] Address [address] [place] [address] Care Team Providers Care Senior Quality Assurance Analyst Name Role Phone Unavailable Primary Care Provider Unavailabl e Encounter Details Date Type Department Care Team (Latest Contact Info) Description 05/31/2022 [facility] BIOMETRIC [place] ADM Social History Tobacco Use Types Packs/Day Years Used Date Smoking Tobacco: Never Assessed Comments Unknown Sex and Gender Information Value Date Recorded Sex Assigned at Not on file Legal Sex Female 10:32 AM [facility] Gender Identity Not on file Sexual Orientation Not on file documented as of this encounter Plan of Treatment Not on file documented as of this encounter Visit Diagnoses Not on filedocumented in this encounter
== END 2025-04-22 15:05 | disposition home or self-care (01) ==
LOC: ANHFOHIMG 15:06
PROVIDERS: PCP Family Medicine; Visit Provider Family Medicine
DX: Z12.31 Encounter for screening mammogram for malignant neoplasm of breast (principal)
CPT/HCPCS: 77063; 77067